=== PATIENT | female | born 1950 | race Caucasian/White ===

== ENCOUNTER → 2020-08-12 | Day surgery (SDC) | payer OTHER, MEDICAID ==
[~2020-08-12] MED LIST: ACCUNEB SO1.25 MG/1; ACETAMINOPHEN325 M1 PO; ADVAIR 100-501 EACH; AMITIZA 24 MCG24 MC1 PO; ASA81BEC PO; ATORVASTATIN CA20 MG PO; CARVEDILOL6.25 M1 PO; COUMADIN 5 MG TA5 M1 PO; CYCLOBENZAPRINE10 MG PO; ELIQUIS2.5 MG PO; GALZIN25 MG PO; GRALISE300 MG PO; IPRAT-ALBUT 0.5-3 ML INH; JANTOVEN7.5 MG PO; LANTUS; LANTUS SQ; LIPITOR 40 MG T40 M1 PO; LISINOPRIL5 MG PO; NEURONTIN 300M300 M2 PO; NORCO 5-325 TA1 EACH PO; NOVOLOG100 UNIT/1 SQ; ONDANSETRON HCL4 M2 PO; PREDNISONE 20 M20 MG PO; PRIMIDONE50 MG PO; PROAIR HFA8.5 GM INH; REGLAN 5 MG TAB5 M1 PO; TIZANIDINE HCL4 M2 PO; TRAZODONE HCL50 MG PO; TRELEGY ELLIPT1 EACH INH; VITAMIN D3125 MC1 PO; XANAX 0.25 MG0.25 MG PO; ZANTAC 150MG T150 M1 PO
--- NOTE | ~2020-08-12 | OP ---
[facility] [address] [place] [address] OPERATIVE REPORT Name: SONA WILLSON Room: [facility].#: [id number] Admission: 08/12/20 Attend Phys: Ravindra Preciado Discharge: Date of : 48 Report #: [id number] THIS REPORT FOR: cc: Physician not on staff Physician not on staff ~ Ravindra Preciado MD DATE OF SERVICE: 08/12/2020 PREOPERATIVE DIAGNOSIS: End-stage renal disease. POSTOPERATIVE DIAGNOSIS: End-stage renal disease. OPERATION: Diagnostic laparoscopy. SURGEON: Ravindra Preciado MD ANESTHESIA: General. ESTIMATED BLOOD LOSS: Minimal. SPECIMEN: None. DESCRIPTION OF PROCEDURE: After informed consent was obtained, the patient was brought to the operating room and placed supine. SCDs were placed and working, preoperative antibiotics were administered, general anesthesia was induced. The abdomen was prepped and draped in the usual sterile fashion. A 5 mm incision was made in the left upper quadrant. A 5 mm trocar was placed under direct vision. Pneumoperitoneum was established. She had adhesions of the omentum and small bowel plastered up to the abdominal wall in all [address] a 5 mm trocar in the right upper quadrant as well to examine the area. There was absolutely no place to peritoneal dialysis catheter could be placed. Also, if it was placed, there was not enough open space for the peritoneal dialysis to work. Therefore, the trocars were removed. The skin was closed with 4-0 Monocryl. Incisions were dressed with Steri-Strips. COMPLICATIONS: None. DISPOSITION: The patient was taken to recovery in satisfactory condition. By: [id number] Preciado MD /nt
[2020-08-12 11:46] LABS: HEMATOCRIT 26.3 % (37.0-47.0); HEMOGLOBIN 8.8 gm/dL (12.0-15.0); MCH 27.8 pg (26.0-34.0); MCHC 33.5 g/dL (28.0-37.0); MPV 6.8 fl. (7.2-11.1); RBC 3.17 mil/uL (4.20-5.00); RDW-CV 16.8 % (10.5-14.5); WBC 4.9 thou/uL (4.0-11.0)
[2020-08-12 11:54] LABS: CALCIUM 8.7 mg/dL (8.5-10.1); CREATININE 3.3 mg/dL (0.6-1.3); POTASSIUM 4.1 mmol/L (3.5-5.1)
[2020-08-12 11:58] LABS: APTT 24.5 Seconds (25.0-31.3); INR 1.1; PROTIME 11.3 Seconds (9.20-11.50)
--- NOTE | 2020-08-13 10:34 | EKG ---
[place] [address] ELECTROCARDIOGRAM REPORT Name: SONA WILLSON Room: [facility]#: [id number] Admission: 08/12/20 Attend Phys: Ravindra Garg Discharge: Date of : 48 Date of Service: 08/12/20 1142 Report #: [id number] THIS REPORT FOR: //name// [facility] Test Date: 2020-08-12 Test Time: 11:42:46 Pat Name: SONA WILLSON Department: Room: Gender: F Counter Maker: : 1950 Requested By: Ravindra Preciado Order Number: [id number] Anderson MD: Jonatan Patino Measurements Intervals [place] Rate: 60 P: SC: 206 QRS: -55 QRSD: 175 T: 1 QT: 473 QTc: 473 Interpretive Statements Atrial-paced rhythm RBBB and LAFB No previous ECG available for comparison Electronically Signed On 08-13-2020 10:33:56 [employer] by Jonatan Patino [email or web address] <ELECTRONICALLY SIGNED> By: Jonatan Patino MD, [facility] 08/13/20 1033 1142 114 Jonatan Patino MD, [facility] /EPI
== END | disposition home or self-care (01) ==
LOC: M.SUR 10:50
PROVIDERS: ATTEND Surgery
DX: E11.22 Type 2 diabetes mellitus with diabetic chronic kidney disease (principal); N18.6 End stage renal disease; I48.91 Unspecified atrial fibrillation; J44.9 Chronic obstructive pulmonary disease, unspecified; Z98.890 Other specified postprocedural states; Z79.899 Other long term (current) drug therapy; Z88.8 Allergy status to other drugs, medicaments and biological substances; Z20.822 Contact with and (suspected) exposure to COVID-19; Z88.2 Allergy status to sulfonamides; Z79.01 Long term (current) use of anticoagulants